=== PATIENT | female | born 1995 | race Caucasian/White ===

== ENCOUNTER 2016-10-21 23:46 | Emergency (ER) | payer MEDICAID ==
[2016-10-22 00:14] VITALS: BMI 27.6
--- NOTE | 2016-10-22 01:06 | ED PDOC ---
Arrival/HPI - General Historian: Patient <Edgar Chapa A - Last Filed: 10/22/16 02:54> <Tyrone Whitaker - Last Filed: 10/22/16 03:58> - General Chief Complaint: Palpitations Time Seen by Provider: 10/22/16 00:38 - History of Present Illness Narrative History of Present Illness (Text): 10/22/16 00:48 20yo female with no PMHx who present for evaluation s/p syncopal episode this evening. States she started having tachycardia and then had a syncopal episode. she notes history of similar symptoms few weeks ago. States she saw her PMD for the symptoms and was referred to a Network Field Engineer and Neurologist. The neurologist referred her for MRI and CT. she is currently waiting for approval from her insurance. She have appointment with a Network Field Engineer. She states her symptoms are currently resolved, but she came to ED for evaluation. She denies chest pain, SOB, visual changes, focal weakness, nausea, vomiting, headache, any other complaint. (Edgar Chapa A) Past Medical History - Provider Review Nursing Documentation Reviewed: Yes - Psychiatric Hx Substance Use: No - Anesthesia Hx Anesthesia: No <Edgar Chapa A - Last Filed: 10/22/16 02:54> Family/Social History - Physician Review Nursing Documentation Reviewed: Yes Family/Social History: Unknown Family HX Smoking Status: Never Smoked Hx Alcohol Use: No Hx Substance Use: No <Edgar Chapa A - Last Filed: 10/22/16 02:54> Allergies/Home Meds <Edgar Chapa A - Last Filed: 10/22/16 02:54> <Tyrone Whitaker - Last Filed: 10/22/16 03:58> Allergies/Adverse Reactions: Allergies No Known Allergies Allergy (Verified 10/22/16 00:14) Home Medications: Home Meds Medication Instructions Recorded Confirmed No Known Home Med 10/22/16 10/22/16 Review of Systems - Physician Review All systems were reviewed & negative as marked: Yes - Review of Systems Constitutional: Normal Eyes: Normal ENT: Normal Respiratory: Normal Cardiovascular: Normal Gastrointestinal: Normal Genitourinary Female: Normal Musculoskeletal: Normal Skin: Normal Neurological: Other (Syncope) Endocrine: Normal Hemo/Lymphatic: Normal Psychiatric: Normal <Edgar Chapa A - Last Filed: 10/22/16 02:54> Physical Exam Vital Signs Reviewed: Yes Temperature: Afebrile Blood Pressure: Normal Pulse: Regular Respiratory Rate: Normal Appearance: Positive for: Well-Appearing, Non-Toxic, Comfortable Pain Distress: None Mental Status: Positive for: Alert and Oriented X 3 - Systems Exam Head: Present: Atraumatic, Normocephalic Pupils: Present: PERRL Extroacular Muscles: Present: EOMI Conjunctiva: Present: Normal Mouth: Present: Moist Mucous Membranes Neck: Present: Normal Range of Motion Respiratory/Chest: Present: Clear to Auscultation, Good Air Exchange. No: Respiratory Distress, Accessory Muscle Use Cardiovascular: Present: Regular Rate and Rhythm, Normal S1, S2. No: Murmurs Abdomen: Present: Normal Bowel Sounds. No: Tenderness, Distention, Peritoneal Signs Back: Present: Normal Inspection Upper Extremity: Present: Normal Inspection. No: Cyanosis, Edema Lower Extremity: Present: Normal Inspection. No: Edema Neurological: Present: GCS=15, CN II-XII Intact, Speech Normal, Motor Func Grossly Intact, Normal Sensory Function, Normal Cerebellar Funct, Norm Deep Tendon Reflexes, Gait Normal, Memory Normal, Normal 2Pt Descrimination, Other ( No focal neurological deficit) Skin: Present: Warm, Dry, Normal Color. No: Rashes Psychiatric: Present: Alert, Oriented x 3, Normal Insight, Normal Concentration <Edgar Chapa A - Last Filed: 10/22/16 02:54> Medical Decision Making <Edgar Chapa A - Last Filed: 10/22/16 02:54> <Tyrone Whitaker - Last Filed: 10/22/16 03:58> ED Course and Treatment: 10/22/16 02:54 Pt presented for stated history. she was neurological intact in ED. Lab was unremarkable. EKG NSR @94bpm. No ST changes Result was DW the pt. She have appointment with a Network Field Engineer and have a Neurologist. she was advised to f/u with her Doctors. TRT ED for any new or worsening symptoms. (Edgar Chapa A) - Lab Interpretations Lab Results: 10/22/16 01:40 10/22/16 01:40 Lab Results 10/22/16 01:40: Sodium 138, Potassium 3.5 L, Chloride 102, Carbon Dioxide 27, Anion Gap 13, BUN 20, Creatinine 0.7, Est GFR ( Amer) > 60, Est GFR (Non- Af Amer) > 60, Random Glucose 93, Calcium 9.7, Total Bilirubin 0.3, AST 25, ALT 29, Alkaline Phosphatase 76, Lactate Dehydrogenase 338, Total Creatine Kinase 71 , Troponin I < 0.01, Total Protein 8.0, Albumin 4.6, Globulin 3.4, Albumin/ Globulin Ratio 1.4 10/22/16 01:40: Urine Color Yellow, Urine Appearance Clear, Urine pH 6.5, Ur Specific [place] 1.015, Urine Protein Negative, Urine Glucose (UA) Negative, Urine Ketones Negative, Urine Blood Negative, Urine Nitrate Negative, Urine Bilirubin Negative, Urine Urobilinogen 0.2, Ur Leukocyte Esterase Negative 10/22/16 01:40: PT 10.9, INR 1.01, APTT 28.8 10/22/16 01:40: WBC 8.2, RBC 4.81, Hgb 11.7 L, Hct 36.4, MCV 75.7 L, MCH 23.4 L , MCHC 32.1, RDW 14.8 H, Plt Count 278, MPV 10.7, Gran % 46.7 L, Lymph % (Auto) 44.2 H, [place] % (Auto) 5.8, Eos % (Auto) 2.9, Baso % (Auto) 0.4, Gran # 3.84, Lymph # 3.6 H, [place] # 0.5, Eos # 0.2, Baso # 0.03 - PA / [facility] [facility] / Resident Statement / has reviewed & agrees with the documentation as recorded. <Tyrone Whitaker - Last Filed: 10/22/16 03:58> Disposition/Present on Arrival - Present on Arrival Any Indicators Present on Arrival: No History of DVT/PE: No History of Uncontrolled Diabetes: No Urinary Catheter: No History of Decub. Ulcer: No History Surgical Site Infection Following: None - Disposition Have Diagnosis and Disposition been Completed?: Yes Disposition Time: 02:55 Patient Plan: Discharge <Edgar Chapa - Last Filed: 10/22/16 02:54> <Tyrone Whitaker - Last Filed: 10/22/16 03:58> - Disposition Diagnosis: Syncope Disposition: HOME/ ROUTINE Patient Problems: Current Active Problems Problem Status Onset Syncope Acute Condition: STABLE Discharge Instructions (ExitCare): Syncope (ED) Additional Instructions: Follow up with your doctor Return to ED for any new or worsening symptoms Referrals: Oneal Olmstead MD [Family Provider] - Follow up with primary
[2016-10-22 01:50] LABS: ADD MANUAL DIFF? NO
[2016-10-22 02:00] LABS: PH,URINE 6.5 (4.7-8.0); URINE BILIRUBIN NEGATIVE (NEGATIVE); URINE BLOOD NEGATIVE (NEGATIVE); URINE GLUCOSE (UA) NEGATIVE (NEGATIVE); URINE KETONE NEGATIVE (NEGATIVE); URINE LEUKOCYTE ESTERASE NEGATIVE Leu/uL (NEGATIVE); URINE PROTEIN NEGATIVE mg/dL (<30 mg/dL); URINE UROBILINOGEN 0.2 E.U./dL (<1 E.U./dL)
[2016-10-22 02:03] LABS: BASO % 0.4 % (0.0-3.0); EOS # 0.2 (0.0-0.7); EOS % 2.9 % (1.5-5.0); GRAN # 3.84 (1.4-6.5); GRAN % 46.7 % (50.0-68.0); HEMATOCRIT 36.4 % (36.0-48.0); LYMPH # 3.6 (1.2-3.4); LYMPH % 44.2 % (22.0-35.0); MEAN CELL VOLUME 75.7 fL (80.0-105.0); MEAN CORPUSCULAR HEMOGLOBIN 23.4 pg (25.0-35.0); MEAN CORPUSCULAR HGB CONC 32.1 g/dl (31.0-37.0); MEAN PLATELET VOLUME 10.7 fl (7.0-11.0); MONO # 0.5 (0.1-0.6); MONO % 5.8 % (1.0-6.0); PLATELET COUNT 278 10^3/uL (120.0-450.0); RED CELL DISTRIBUTION WIDTH 14.8 % (11.5-14.5); WHITE BLOOD COUNT 8.2 10^3/ul (4.5-11.0)
[2016-10-22 02:04] LABS: ALB/GLOB RATIO 1.4 (1.1-1.8); ALKALINE PHOSPHATASE 76 U/L (38-133); ALT/SGPT 29 U/L (7-56); AST/SGOT 25 U/L (15-39); BASO # 0.03 K/mm3 (0.0-2.0); BILIRUBIN,TOTAL 0.3 mg/dL (0.2-1.3); BLOOD UREA NITROGEN 20 mg/dL (7-21); CALCIUM 9.7 mg/dL (8.4-10.5); CARBON DIOXIDE 27 mmol/L (21-33); CHLORIDE 102 mmol/L (98-107); GFR AFRICAN-AMERICAN > 60; GLUCOSE,RANDOM 93 mg/dL (70-110); POTASSIUM 3.5 mmol/L (3.6-5.0); SODIUM 138 mmol/L (132-148); URINE APPEARANCE CLEAR (CLEAR); URINE COLOR YELLOW (YELLOW)
[2016-10-22 02:07] LABS: INR 1.01 (0.93-1.08); PARTIAL THROMBOPLASTIN TIME 28.8 Seconds (23.7-30.8)
[2016-10-22 02:23] LABS: TROPONIN I < 0.01 ng/mL
[2016-10-22 04:24] VITALS: BP 152/56; PULSE 75; RESP 20; TEMP 98.5; O2SAT 99
--- NOTE | 2016-10-22 10:37 | CARD ---
APPROVED REPORT EKG Measurement Heart [id number] <Conclusion> Normal sinus rhythm Normal ECG
== END 2016-10-22 03:30 | disposition home or self-care (01) ==
LOC: ED 23:46
DX: R55 Syncope and collapse (principal)